=== PATIENT | male | born 1960 | race Caucasian/White ===

== ENCOUNTER 2018-09-20 04:45 | Inpatient (IN) | payer MEDICARE, MEDICAID ==
[~2018-09-20] VITALS: Ht 172.7 cm; Wt 103.4 kg
[~2018-09-20 04:45] MED LIST: ASPI-1169 PO; ATEN50TA PO; ATOR40TA PO; EZET10TA14 PO; FENO160T PO; GLIP5TAB13 PO; LEVO500T75 PO; LISI40TA4 PO; METF-440 PO; NIAC500T2 PO; OMEG1CAP55 PO
--- NOTE | 2018-09-20 04:59 | NUR ---
BLOOD GLUCOSE ON ARRIVAL 87, MD AWARE
[2018-09-20] MEDS ORDERED: IV NS 0.9% 500 ML BAG IV ONE (05:00)
--- NOTE | 2018-09-20 05:04 | NUR ---
HUSSEIN [phone]
--- NOTE | 2018-09-20 05:12 | NUR ---
DR MITCHELL AT BEDSIDE FOR EVALUATION. PER MD, PROVIDE PATIENT WITH JUICE TO PREVENT FURTHER HYPOGLYCEMIA, 5OOML NS BOLUS X1, AND OBTAIN URINE SAMPLE. PATIENT AWARE OF NEED FOR URINE SAMPLE, SPECIMEN CUP AND URINAL PROVIDED.
[2018-09-20 05:24] LABS: BASOPHILS # (AUTO) 0.1 /CMM (0.0-0.2); BASOPHILS % (AUTO) 1.1 % (0.0-2.0); HEMATOCRIT 46 % (39-51); HEMOGLOBIN 15.2 g/dL (13.5-17.5); LYMPHOCYTES # (AUTO) 1.2 /CMM (0.8-4.8); LYMPHOCYTES % (AUTO) 14.1 % (20.0-44.0); MEAN CORPUSCULAR HGB CONC 33 g/dl (31.0-36.0); MEAN CORPUSCULAR VOLUME 87 fL (80-96); MONOCYTES # (AUTO) 0.8 /CMM (0.1-1.30); MONOCYTES % (AUTO) 9.6 % (2.0-12.0); NEUTROPHILS # (AUTO) 6.1 /CMM (1.8-8.9); NEUTROPHILS % (AUTO) 71.2 % (43.0-81.0); PLATELET COUNT (AUTO) 263 /CMM (150-450); RED BLOOD CELL COUNT(AUTO) 5.28 MIL/uL (4.5-6.0); WHITE BLOOD COUNT (AUTO) 8.6 K/uL (4.3-11.0)
[2018-09-20 05:32] LABS: CALCIUM, SERUM 9.7 mg/dL (8.5-10.1); CREATININE 2.3 mg/dL (0.6-1.3); POTASSIUM 4.2 mmol/L (3.5-5.1)
[2018-09-20 05:37] LABS: ALBUMIN 3.9 g/dL (3.4-5.0); BILIRUBIN,DIRECT 0.1 mg/dL (0.0-0.2); BILIRUBIN,TOTAL 0.5 mg/dL (0.2-1.0); TOTAL PROTEIN, SERUM 8.5 g/dL (6.4-8.2)
--- NOTE | 2018-09-20 05:45 | NUR ---
IV FLUID 500ML BOLUS COMPLETE. PATIENT ENCOURAGED TO PROVIDE URINE SPECIMEN. CRANBERRY JUICE PROVIDED PER PATIENT REQUEST
[2018-09-20] MEDS ORDERED: ACETAMINOPHEN ES 500 MG TABLET ONE (05:52)
--- NOTE | 2018-09-20 06:11 | NUR ---
BLOOD SUGAR 104, MD MADE AWARE. PER MD, MAKE SURE PATIENT GETS BREAKFAST. WILL NOTIFY KITCHEN WHEN OPEN
--- NOTE | 2018-09-20 07:39 | NUR ---
URINE COLLECTED AND SENT TO LAB
--- NOTE | 2018-09-20 07:39 | NUR ---
CALLED KITCHEN FOR BREAKFAST TREE
[2018-09-20 07:41] LABS: BILIRUBIN,URINE Negative (NEGATIVE); BLOOD, URINE Trace-lysed Ery/uL (NEGATIVE); COLOR,URINE Yellow (YELLOW); KETONES,URINE Negative (NEGATIVE); LEUKOCYTE ESTERASE ,URINE Small (NEGATIVE); NITRITE, URINE Negative (NEGATIVE); PH,URINE 5.5 (5.0-8.0); PROTEIN,URINE Negative (NEGATIVE); UGLUCOSE Negative (NEGATIVE); UROBILINOGEN,URINE 0.2 EU/dL (0.2)
[2018-09-20 07:43] LABS: APPEARANCE,URINE Hazy (CLEAR)
--- NOTE | 2018-09-20 07:48 | NUR ---
urine collected and sent to lab.
[2018-09-20 07:49] LABS: BACTERIA,URINE Rare /HPF (None Seen); SQUAMOUS EPITHELIAL CELL,UR Few /HPF (None Seen); WBC,URINE 20-50 /HPF (0-3)
[2018-09-20] MEDS ORDERED: CEFTRIAXONE 1GM BAG (ER ONLY) 1 GM/50 ML PIGGYBACK IV ONE (08:30)
[2018-09-20] MEDS ORDERED: CEFTRIAXONE 1GM BAG (ER ONLY) 50 ML IV ONE (08:49)
[2018-09-20] MEDS ORDERED: ICOS1CAP PO (08:50)
[2018-09-20] MEDS ORDERED: CLOP75TA15 PO (08:50)
[2018-09-20] MEDS ORDERED: METO-356 PO (08:50)
[2018-09-20] MEDS ORDERED: INSU100I26 SQ (08:50)
[2018-09-20] MEDS ORDERED: LINA5TAB PO (08:50)
[2018-09-20] MEDS ORDERED: ATOR80TA PO (08:50)
[2018-09-20] MEDS ORDERED: GLIM4TAB2 PO (08:50)
[2018-09-20] MEDS ORDERED: INSU100V3 SQ (08:59)
--- NOTE | 2018-09-20 10:49 | NUR ---
called [facility] and spoke to Mariposa WARNER, report given and for alisia. Patient is going to room 324-1.
[2018-09-20 11:10] VITALS: BP 113/74
--- NOTE | 2018-09-20 11:10 | NUR ---
RESIDENT IN DIAGNOSTIC RADIOLOGYREMITTANCE CLERK NOTE PT ARRIVED TO TELE UNIT IN STABLE CONDITION VIA GURNEY ACCOMPANIED BY ER STAFF. PT IS A/O X3-4, AFEBRILE. RESPIRATIONS ARE EVEN AND UNLABORED, NOT IN ANY ACUTE DISTRESS NOTED. PT DENIES ANY PAIN AT THIS TIME, NO C/O SOB, N/V. PT IS ABLE TO AMBULATE WITH STAND BY ASSIST. PUPILS ARE REACTIVE TO LIGHT, BILATERAL HAND SCREWMAKER AUTOMATIC ARE STRONG AND EQUAL. ABDOMEN IS SOFT AND NONDISTENDED, BOWEL SOUNDS ARE PRESENT IN ALL 4 QUADRANTS UPON AUSCULTATION. DENIES ANY BLADDER DISCOMFORT. STITCHES NOTED TO RIGHT LOWER EYE LID AND RIGHT UPPER BACK. PICTURES TAKEN AND PLACED IN CHART. BELONGINGS ACCOUNTED FOR. DR. MOORE MADE AWARE OF ADMISSION. WILL CONTINUE TO MONITOR THROUGHOUT SHIFT FOR CONTINUITY OF CARE.
[2018-09-20] MEDS ORDERED: MAG HYDROX/AL HYDROX/SIMETH 30 ML UDC PO PRN (11:30)
[2018-09-20] MEDS ORDERED: ACETAMINOPHEN 325 MG TABLET PO PRN (11:30)
[2018-09-20] MEDS ORDERED: MAGNESIUM HYDROXIDE 30 ML UDC PO PRN (11:30)
[2018-09-20] MEDS ORDERED: HYDROCODONE/APAP 5/325MG 1 EACH TABLET PO PRN (11:30)
[2018-09-20] MEDS ORDERED: ONDANSETRON HCL/PF 4 MG/2 ML VIAL IVP PRN (11:30)
[2018-09-20] MEDS ORDERED: Z GUARD REMEDY 2 OZ OINT TP PRN (11:30)
[2018-09-20] MEDS ORDERED: ZOLPIDEM TARTRATE 5 MG TABLET PO PRN (11:30)
--- NOTE | 2018-09-20 11:45 | NUR ---
wheeled patient via gurney in no apparent distress noted, going to room 324.
[2018-09-20] MEDS: IV NS 0.9% 1,000 ML IV SCH (14:33)
--- NOTE | 2018-09-20 14:35 | NUR ---
MS RN NOTES-- PT ABLE TO VOID AND STATED HE "PEED A LOT." NOTIFIED DR. MOORE RE: BLADDER VOLUME AND PT ABLE TO URINATE.
[2018-09-20 16:00] VITALS: BP 105/60
--- NOTE | 2018-09-20 16:04 | NUR ---
MS RN NOTES-- CALLED FRANNY HOUGH FROM [facility], STATED SHE WILL BRING THE TRICOR AND PROVIDE TO PHARMACY. NOTIFIED MARIANELA IN PHARMACY.
[2018-09-20] MEDS ORDERED: INSULIN REGULAR, HUMAN 100 UNIT/ML 3 ML VIAL SQ SCH (16:30)
[2018-09-20] MEDS: BLOOD SUGAR DIAGNOSTIC 1 EACH STRIP IN SCH ×2 (16:59→22:00)
[2018-09-20] MEDS ORDERED: Medication Not On Formulary EA (Icosapent Ethyl (Vascepa) 1 GM) PO SCH (17:00)
--- NOTE | 2018-09-20 18:27 | NUR ---
CORNER BLOCK CUTTER CLOSING NOTES PT ABLE TO MAKE NEEDS KNOWN. NEEDS MET AND RENDERED. PT IS A/O X4, AFEBRILE. RESPIRATIONS ARE EVEN AND UNLABORED, NOT IN ANY ACUTE DISTRESS NOTED. PT DENIES ANY PAIN AT THIS TIME, NO C/O SOB, N/V. IV ACCESS TO RIGHT HAND INTACT, NO INFILTRATION NOTED. DRESSING KEPT CLEAN AND DRY. SAFETY MEASURES ARE IN PLACE. REMINDED PT TO USE CALL LIGHT WHEN ASSISTANCE IS NEEDED, CALL LIGHT IS LEFT WITHIN REACH. WILL ENDORSE TO NEXT SHIFT FOR CONTINUITY OF CARE.
--- NOTE | 2018-09-20 19:30 | NUR ---
CNC SERVICE ENGINEER NOTES RECEIVED PATIENT ALERT ORIENTED X 4, NO SIGNS OF ACUTE RESPIRATORY AND CARDIAC DISTRESS NOTED, ABLE TO MAKE NEEDS KNOWN. PT IS A/O X4, AFEBRILE. RESPIRATIONS ARE EVEN AND UNLABORED, PATIENT DENIES ANY PAIN AT THIS TIME, NO C/O SOB, N/V. IV ACCESS TO RIGHT HAND INTACT AND PATENT, NO INFILTRATION NOTED. DRESSING KEPT CLEAN AND DRY. SAFETY MEASURES ARE IN PLACE. REMINDED PT TO USE CALL LIGHT WHEN ASSISTANCE IS NEEDED, CALL LIGHT IS WITHIN REACH. ALL NEEDS ATTENDED, WILL MONITOR ACCORDINGLY.
[2018-09-20 20:00] VITALS: BP_SYST 102; BP_SYST 96; BP_DIAS 61; BP_DIAS 65
[2018-09-20] MEDS ORDERED: INSULIN GLARGINE, 100 UNIT/ML CARTRIDGE SQ SCH (22:00)
[2018-09-20] MEDS: ATORVASTATIN 40 MG TABLET PO SCH (22:27)
[2018-09-20] MEDS: METOPROLOL SUCCINATE 25 MG TAB.SR.24H PO SCH (22:27)
--- NOTE | 2018-09-20 23:00 | NUR ---
RN NOTES AT 2231 CHECKED BLOOD GLUCOSE 62 MG/DL, RECHECKED AGAIN AT 2241 BS 59 MG/DL OFFERED 2 PACKS OF ORANGE JUICE, PATIENT IS ALERT ORIENTED X 4, NO COMPLAINTS OF BLURRY VISION, SATING 96% ON ROOM AIR, WARM DRY TO TOUCH, NO CHANGE OF LOC REPOSITIONED PATIENT, RECHECKED AT 2250 BS 94 MG/DL. WILL CONTINUE TO MONITOR ACCORDINGLY.
[2018-09-21] VITALS: BP_SYST 102; BP_SYST 96; BP_DIAS 61; BP_DIAS 65
[2018-09-21] MEDS: IV NS 0.9% 1,000 ML IV SCH ×4 (00:46→22:04)
[2018-09-21 04:00] VITALS: BP 107/64
[2018-09-21 04:19] VITALS: BP 107/67
--- NOTE | 2018-09-21 05:25 | NUR ---
RN NOTES AT 0520 NOTED BLOOD GLUCOSE LEVEL AT 44 MG/DL, NO COLD CLAMMY, NO DIAPHORESIS, NO ALTERATION OF LEVEL OF CONSCIOUSNESS, RECHECKED AT 0525 62 MG/DL, PATIENT IS EATING TUNA SANDWICH AT THIS TIME. WILL CONTINUE TO MONITOR, CHARGE NURSE IS AWARE OF PATIENTS BLOOD GLUCOSE LEVEL.
[2018-09-21 06:17] LABS: BASOPHILS # (AUTO) 0.1 /CMM (0.0-0.2); BASOPHILS % (AUTO) 0.8 % (0.0-2.0); HEMATOCRIT 39 % (39-51); HEMOGLOBIN 13.2 g/dL (13.5-17.5); LYMPHOCYTES # (AUTO) 1.7 /CMM (0.8-4.8); MEAN CORPUSCULAR HGB CONC 34 g/dl (31.0-36.0); MEAN CORPUSCULAR VOLUME 86 fL (80-96); MONOCYTES # (AUTO) 0.8 /CMM (0.1-1.30); MONOCYTES % (AUTO) 10.7 % (2.0-12.0); NEUTROPHILS # (AUTO) 4.7 /CMM (1.8-8.9); NEUTROPHILS % (AUTO) 61.5 % (43.0-81.0); PLATELET COUNT (AUTO) 229 /CMM (150-450); RED BLOOD CELL COUNT(AUTO) 4.58 MIL/uL (4.5-6.0); WHITE BLOOD COUNT (AUTO) 7.6 K/uL (4.3-11.0)
[2018-09-21 06:37] LABS: ALBUMIN 3.1 g/dL (3.4-5.0); BILIRUBIN,TOTAL 0.4 mg/dL (0.2-1.0); CALCIUM, SERUM 8.2 mg/dL (8.5-10.1); CREATININE 1.8 mg/dL (0.6-1.3); MAGNESIUM 1.5 mg/dL (1.8-2.4); PHOSPHORUS 3.4 mg/dL (2.5-4.9); POTASSIUM 3.7 mmol/L (3.5-5.1); TOTAL PROTEIN, SERUM 6.9 g/dL (6.4-8.2)
--- NOTE | 2018-09-21 07:05 | NUR ---
RN NOTES ALL NEEDS ATTENDED AND MET KEPT CLEAN DRY AND COMFORTABLE, CONSUMED 1 SERVING OF TUNA SANDWICH, ALERT ORIENTED, RESTING COMFORTABLY AT THIS TIME, SAFETY MEASURES IN PLACED, WARM AND DRY TO TOUCH, NO COMPLAINTS OF BLURRY VISION. ENDORSED TO AM NURSE FOR CONTINUITY OF CARE.
--- NOTE | 2018-09-21 07:18 | NUR ---
RN NOTES ENDORSED TO AM NURSE TO MONITOR BLOOD GLUCOSE LEVEL, LATEST RESULT AT 0630 122 MG/DL. PATIENT IS CALM, NO SIGNS OF ACUTE RESPIRATORY, CARDIAC OR SUDDEN CHANGE OF LOC AT THIS TIME.
--- NOTE | 2018-09-21 07:30 | NUR ---
MS/RN OPENING NOTE PATIENT IN BED IN STABLE CONDITION. A/O X 3. NO SIGNS OF ACUTE DISTRESS. NO COMPLAIN OF PAIN OR DISCOMFORT. ALL NEEDS ATTENDED TO. CALL LIGHT WITHIN REACH. WILL CONTINUE TO MONITOR TO ENSURE SAFETY.
[2018-09-21] MEDS: BLOOD SUGAR DIAGNOSTIC 1 EACH STRIP IN SCH ×4 (07:40→22:06)
[2018-09-21 08:00] VITALS: BP 102/68
[2018-09-21] MEDS: ASPIRIN 81 MG TAB.CHEW PO SCH (08:19)
[2018-09-21] MEDS: CEFTRIAXONE 1 G in IV D5W 50 ML IV SCH (08:19)
[2018-09-21] MEDS: FENOFIBRATE NANOCRYS (145 MG) 145 MG TABLET PO SCH (08:19)
[2018-09-21] MEDS: INSULIN GLARGINE, 100 UNIT/ML CARTRIDGE SQ SCH (08:19)
[2018-09-21] MEDS: CLOPIDOGREL BISULFATE 75 MG TABLET PO SCH (08:19)
[2018-09-21] MEDS ORDERED: ATENOLOL 50 MG TABLET PO SCH (09:00)
[2018-09-21] MEDS ORDERED: Magnesium 1GM/D5W 100ML PREMIX 100 ML IV SCH (09:30)
--- NOTE | 2018-09-21 14:30 | NUR ---
MS/RN SEEN BY DR VERONICA FLORES WITH NO ORDERS AT THIS TIME.
[2018-09-21 16:00] VITALS: BP 114/74
--- NOTE | 2018-09-21 18:17 | NUR ---
MS/RN CLOSING NOTE PATIENT IN BED IN STABLE CONDITION. A/O X 3. NO SIGNS OF ACUTE DISTRESS. NO COMPLAIN OF PAIN OR DISCOMFORT. ALL NEEDS ATTENDED TO. CALL LIGHT WITHIN REACH. WILL ENDORSE TO NEXT SHIFT FOR CONTINUITY OF CARE.
--- NOTE | 2018-09-21 19:05 | NUR ---
RN PM OPENING NOTES BEDSIDE REPORT RECEIVED FROM KALEIGH WARNER. POC REVIEWED WITH PATIENT QUESTIONS CONCERNS ADDRESSED. PT IN BED AT LOWEST AND LOCKED POSITION WITH SIDE RAILS UP X2, BREATHING EVEN AND UNLABORED ON RA, A/O X4 WITH NO S/S OF ANY PAIN OR DISTRESS NOTED AT THIS TIME, IV IS PATENT AND INTACT, PT SEEN SITTING ON BED, SAFETY PRECAUTIONS IN PLACE, CALL LIGHT WITHIN REACH, WILL MONITOR PT ACCORDINGLY.
[2018-09-21 19:32] LABS: CREATININE, URINE 57.6 MG/DL (30.0-125.0); URINE TOTAL PROTEIN 16.8 mg/dL (0-11.9)
[2018-09-21 20:23] VITALS: BP 100/69
[2018-09-21] MEDS: ATORVASTATIN 40 MG TABLET PO SCH (21:56)
[2018-09-21] MEDS: METOPROLOL SUCCINATE 25 MG TAB.SR.24H PO SCH (21:57)
[2018-09-22 06:42] LABS: CALCIUM, SERUM 8.5 mg/dL (8.5-10.1); CREATININE 1.7 mg/dL (0.6-1.3); MAGNESIUM 1.7 mg/dL (1.8-2.4); POTASSIUM 3.9 mmol/L (3.5-5.1)
--- NOTE | 2018-09-22 06:45 | NUR ---
RN pm CLOSING NOTE PT IN BED AT LOWEST AND LOCKED POSITION WITH SIDE RAILS X2, A/O X4 BREATHING EVEN AND UNLABORED ON RA, NO S/S OF ANY DISTRESS OR PAIN NOTED AT THIS TIME, IV IS PATENT AND INTACT NS INFUSING AT 100 ML/HR. PATIENT HAD A LOW BS THIS AM AT 0604 BS WAS FOUND TO BE 53 GIVEN JUICE BOX RECHECKED AT 0630 BS NOW FOUND TO BE 49. PATIENT GIVEN 2 JUICE BOXES AND 2 PACKAGES OF CRACKERS TO SNACK ON BS RECHECKED AT 0645 AND NOW IS BG IS 80., SAFETY PRECAUTIONS IN PLACE, CALL LIGHT WITHIN REACH, ALL NEEDS ATTENDED TO, WILL ENDORSE TO ONCOMING NURSE.
[2018-09-22] MEDS: BLOOD SUGAR DIAGNOSTIC 1 EACH STRIP IN SCH ×2 (06:58→11:44)
--- NOTE | 2018-09-22 08:00 | NUR ---
RN NOTES PATIENT A/OX4, NO DISTRESS NOTED, BREATHING EVEN AND UNLABORED, NO SOB NOTED, EATING BREAKFAST, KEPT COMFORTABLE, NEEDS ATTENDED, CALL LIGHT WITHIN REACH, WILL CONTINUE TO MONITOR.
[2018-09-22 08:36] VITALS: BP 112/76
[2018-09-22] MEDS: CEFTRIAXONE 1 G in IV D5W 50 ML IV SCH (08:37)
[2018-09-22] MEDS: INSULIN GLARGINE, 100 UNIT/ML CARTRIDGE SQ SCH (08:38)
[2018-09-22] MEDS: ASPIRIN 81 MG TAB.CHEW PO SCH (08:38)
[2018-09-22] MEDS: CLOPIDOGREL BISULFATE 75 MG TABLET PO SCH (08:38)
[2018-09-22] MEDS: FENOFIBRATE NANOCRYS (145 MG) 145 MG TABLET PO SCH (08:38)
[2018-09-22 10:13] LABS: *SPE ALBUMIN 3.4 g/dL (2.9-4.4); *SPE ALPHA-1-GLOBULIN 0.2 g/dL (0.0-0.4); *SPE ALPHA-2-GLOBULIN 0.8 g/dL (0.4-1.0); *SPE BETA GLOBULIN 1.2 g/dL (0.7-1.3); *SPE GLOBULIN, TOTAL 3.3 g/dL (2.2-3.9); *SPE M-SPIKE Not Observed g/dL (Not Observed); *SPEGAMMA GLOBULIN 1.1 g/dL (0.4-1.8)
[2018-09-22] MEDS: IV NS 0.9% 1,000 ML IV SCH (10:39)
[2018-09-22] MEDS ORDERED: Magnesium 1GM/D5W 100ML PREMIX 100 ML IV SCH (11:08)
[2018-09-22] MEDS ORDERED: CEFT1VIA15 IV (11:27)
[2018-09-22 13:08] LABS: PTH, INTACT 36 pg/mL (15-65)
--- NOTE | 2018-09-22 13:15 | NUR ---
DAG COATER PATIENT A/OX3, PIV REMOVED, NO DISTRESS NOTED, SKIN ASSESSMENT COMPLETED, PHOTOS TAKEN AND PLACED IN CHART, RECEIVED DISCHARGE INSTRUCTIONS AND VERBALIZED UNDERSTANDING, BELONGINGS RECONCILED AND COMPLETE WITH UPPER DENTURE. PATIENT HAS NO CLOTHES, A PAIR OF CLOTHES PROVIDED. RX FAXED OVER TO PREFERRED PHARMACY. PATIENT LEFT THE FACILITY ACCOMPANIED BY [employer] TILE MECHANIC HELPER IN STABLE CONDITION.
== END 2018-09-22 13:00 | disposition home or self-care (01) | DRG 637 ==
LOC: ER 04:47 → MED 11:15 → TELE 15:09 → MED 09-21 10:30
PROVIDERS: ADMIT Family Medicine; ATTEND Nurse Practitioner Acute Care
DX: E11.649 Type 2 diabetes mellitus with hypoglycemia without coma (principal); G93.41 Metabolic encephalopathy; N39.0 Urinary tract infection, site not specified; I12.9 Hypertensive chronic kidney disease with stage 1 through stage 4 chronic kidney disease, or unspecified chronic kidney disease; N17.0 Acute kidney failure with tubular necrosis; R62.50 Unspecified lack of expected normal physiological development in childhood; N18.9 Chronic kidney disease, unspecified; E78.5 Hyperlipidemia, unspecified; Z79.84 Long term (current) use of oral hypoglycemic drugs; Z79.82 Long term (current) use of aspirin; Z79.899 Other long term (current) drug therapy; Z98.890 Other specified postprocedural states; Z79.4 Long term (current) use of insulin; E11.22 Type 2 diabetes mellitus with diabetic chronic kidney disease; Z82.3 Family history of stroke; Z87.440 Personal history of urinary (tract) infections; Z86.73 Personal history of transient ischemic attack (TIA), and cerebral infarction without residual deficits; I25.2 Old myocardial infarction; Z80.9 Family history of malignant neoplasm, unspecified; I25.10 Atherosclerotic heart disease of native coronary artery without angina pectoris; D64.9 Anemia, unspecified; E66.9 Obesity, unspecified; Z68.34 Body mass index [BMI] 34.0-34.9, adult; R32 Unspecified urinary incontinence
CPT/HCPCS: 36415; 76770-TC; 80048-TC; 80053-TC; 80061-TC; 80076-TC; 81000-TC; 82550-TC; 82570-TC; 82962-TC; 83690-TC; 83735-TC; 83970; 84100-TC; 84155; 84155-TC; 84165; 84300-TC; 85025-TC; 87081-TC; 87086-TC; G0378; J0696; J1815; J3475; J7030; J7040; J7060